=== PATIENT | female | born 1995 | race African-American/Black ===

== ENCOUNTER 2024-09-26 23:58 | Emergency (ER) | payer OTHER ==
[2024-09-27 00:07] VITALS: BP 111/72; PULSE 72; RESP 20; TEMP 98.5; BMI 44.6
[2024-09-27] MEDS ORDERED: FAMOTIDINE 20 MG TABLET ONE (00:34)
[2024-09-27] MEDS ORDERED: ONDANSETRON *ODT* 4 MG TABLET ONE (00:34)
[2024-09-27] MEDS ORDERED: ACETAMINOPHEN 500 MG TABLET (FP) ONE (00:36)
[2024-09-27] MEDS: ACETAMINOPHEN 500 MG TABLET (FP) PO ONE (00:42)
[2024-09-27] MEDS: FAMOTIDINE 20 MG TABLET PO ONE (00:42)
[2024-09-27] MEDS: ONDANSETRON *ODT* 4 MG TABLET SL ONE (00:42)
[2024-09-27 00:46] LABS: URINE APPEARANCE CLOUDY; URINE BILIRUBIN NEGATIVE (NEGATIVE); URINE COLOR YELLOW; URINE GLUCOSE (UA) NEGATIVE (NEGATIVE); URINE KETONE 2+ (NEGATIVE); URINE LEUK ESTERASE NEGATIVE (NEGATIVE); URINE NITRITE NEGATIVE (NEGATIVE); URINE PROTEIN NEGATIVE (NEGATIVE); URINE UROBILINOGEN 0.2 mg/dL (0.2-1.0)
== END 2024-09-27 01:22 | disposition home or self-care (01) ==
LOC: EDSEX 23:58 → JER 23:58
DX: O21.9 Vomiting of pregnancy, unspecified (principal); O26.891 Other specified pregnancy related conditions, first trimester; R53.1 Weakness; R11.0 Nausea; Z3A.01 Less than 8 weeks gestation of pregnancy
CPT/HCPCS: 81003; 87086; 93005; 93010; 99284-25; Q0162